=== PATIENT | female | born 1950 | race Caucasian/White ===

== ENCOUNTER 2019-06-20 07:40 | Emergency (ER) | payer MEDICARE ==
[~2019-06-20] VITALS: Ht 175.3 cm; Wt 86.4 kg
[2019-06-20] MEDS ORDERED: normal saline 1000ML IV soln IVB ONE (08:00)
[2019-06-20] MEDS ORDERED: famotidine/PF 10 mg/ml inj IV ONE (08:00)
[2019-06-20] MEDS ORDERED: ondansetron/PF 4mg/2ml inj IV ONE (08:00)
[2019-06-20 08:54] LABS: BASOPHILS % (AUTO) 0.2 % (0-1); EOSINOPHILS # (AUTO) 0.1 X10'3 (0-0.9); EOSINOPHILS % (AUTO) 0.9 % (0-6); HEMATOCRIT 38.5 % (35.0-45.0); HEMOGLOBIN 13.2 g/dl (12.0-16.0); LYMPHOCYTES # (AUTO) 1.5 X10'3 (1.1-4.8); LYMPHOCYTES % (AUTO) 13.2 % (21-51); MEAN CORPUSCULAR HEMOGLOBIN 32.7 PG (27.0-31.0); MEAN CORPUSCULAR HGB CONC 34.2 g/dL (33.0-36.5); MEAN CORPUSCULAR VOLUME 95.7 FL (78-98); MEAN PLATELET VOLUME 7.8 FL (7.4-10.4); MONOCYTES # (AUTO) 0.7 X10'3 (0-0.9); NEUTROPHILS # (AUTO) 9.1 X10'3 (1.8-7.7); NEUTROPHILS % (AUTO) 79.7 % (42-75); PLATELET COUNT 246 X10'3 (140-440); RED BLOOD COUNT 4.02 X10'6 (4.20-5.60); RED CELL DISTRIBUTION WIDTH 13.9 % (11.5-14.5); WHITE BLOOD COUNT 11.4 X10'3 (4.5-11.0)
[2019-06-20 08:59] LABS: CLARITY,URINE SLIGHTLY CLOUDY (Clear); COLOR,URINE STRAW (Yellow); GLUCOSE, URINE NEGATIVE (Neg); KETONES,URINE NEGATIVE (Neg); LEUKOCYTE ESTERASE ,URINE NEGATIVE (Neg); NITRITES, URINE NEGATIVE (Neg); OCCULT BLOOD,URINE NEGATIVE (Neg); PROTEIN,URINE NEGATIVE (Neg); UROBILINOGEN,URINE 0.2 E.U/dL (0.2-1.0)
[2019-06-20 09:02] LABS: ALANINE AMINOTRANSFERASE 24 U/L (12-78); ALBUMIN 3.5 G/DL (3.4-5.0); ALBUMIN/GLOBULIN RATIO 1.2 (1.1-1.5); ALKALINE PHOSPHATASE 54 IU/L (46-116); ASPARTATE AMINO TRANSFERASE 14 U/L (10-37); BILIRUBIN,TOTAL 0.3 MG/DL (0.1-1.0); BLOOD UREA NITROGEN 36 MG/DL (7-18); BUN/CREATININE RATIO 32.4 (6.6-38.0); CALCIUM 8.4 MG/DL (8.5-10.1); CHLORIDE 103 MMOL/L (99-107); CREATININE 1.11 MG/DL (0.40-0.90); GLUCOSE 111 MG/DL (70-104); LIPASE 98 U/L (73-393); POTASSIUM 3.8 MMOL/L (3.5-5.1); TOTAL CARBON DIOXIDE 26.2 MMOL/L (24-32); TOTAL PROTEIN 6.5 G/DL (6.4-8.2); eGFR 49 ML/MIN
[2019-06-20 09:03] LABS: ANION GAP 11 (8-16); SODIUM 140 MMOL/L (135-145)
[2019-06-20 09:22] LABS: UA COLLECTION TYPE CLN CATCH MIDSTREAM
[2019-06-20] MEDS ORDERED: ONDA4TAB6 PO (09:26)
[2019-06-20 09:27] LABS: MUCUS STRANDS NONE SEEN /LPF (Neg); SQUAMOUS EPITHELIAL CELL,UR MODERATE /LPF (FEW)
[2019-06-20 09:28] LABS: BACTERIA,URINE FEW /HPF (Neg); RBC,URINE 0-2 /HPF (0-2); TRANSITIONAL EPI CELLS,URINE FEW /HPF; WBC,URINE 0-4 /HPF (0-4)
[2019-06-20 09:29] LABS: CAL OXALATE CRYSTALS 3+ /HPF (NEGATIVE)
[2019-06-20 09:43] VITALS: BP 127/59
== END 2019-06-20 09:46 | disposition home or self-care (01) ==
LOC: ER 07:43
DX: A08.4 Viral intestinal infection, unspecified (principal); E86.0 Dehydration; I10 Essential (primary) hypertension; E11.9 Type 2 diabetes mellitus without complications; Z88.0 Allergy status to penicillin; Z79.899 Other long term (current) drug therapy
CPT/HCPCS: 36415; 71045; 80053; 81001; 83690; 84145; 85025; 87502; 87503; 93005; 96361; 96374; 96375; 99284; J2405; J3490; J7030

== ENCOUNTER 2021-01-12 00:09 | Emergency (ER) | payer MEDICARE ==
[~2021-01-12] VITALS: Ht 167.6 cm; Wt 109.0 kg
[~2021-01-12 00:09] MED LIST: ONDA4TAB6 PO
[2021-01-12 02:17] VITALS: BP 126/67
== END 2021-01-12 02:19 | disposition home or self-care (01) ==
LOC: ER 00:10
DX: M79.675 Pain in left toe(s) (principal); I10 Essential (primary) hypertension; E11.9 Type 2 diabetes mellitus without complications; Z88.0 Allergy status to penicillin; Z79.899 Other long term (current) drug therapy
CPT/HCPCS: 99281; 99283

== ENCOUNTER 2021-06-23 03:31 | Emergency (ER) | payer MEDICARE ==
[~2021-06-23] VITALS: Ht 167.6 cm; Wt 114.1 kg
[2021-06-23 05:04] LABS: CLARITY,URINE CLEAR (Clear); COLOR,URINE YELLOW (Yellow); GLUCOSE, URINE NEGATIVE (Neg); KETONES,URINE NEGATIVE (Neg); LEUKOCYTE ESTERASE ,URINE MODERATE (Neg); NITRITES, URINE NEGATIVE (Neg); OCCULT BLOOD,URINE NEGATIVE (Neg); PH,URINE 6.5 (4.8-8.0); PROTEIN,URINE NEGATIVE (Neg); UROBILINOGEN,URINE 0.2 E.U/dL (0.2-1.0)
[2021-06-23 05:05] LABS: BASOPHILS % (AUTO) 0.5 % (0-1); EOSINOPHILS # (AUTO) 0.2 X10'3 (0-0.9); EOSINOPHILS % (AUTO) 3.1 % (0-6); HEMATOCRIT 40.7 % (35.0-45.0); HEMOGLOBIN 13.8 g/dl (12.0-16.0); LYMPHOCYTES # (AUTO) 2.2 X10'3 (1.1-4.8); LYMPHOCYTES % (AUTO) 30.1 % (21-51); MEAN CORPUSCULAR HEMOGLOBIN 30.7 PG (27.0-31.0); MEAN CORPUSCULAR VOLUME 90.3 FL (78-98); MONOCYTES # (AUTO) 0.7 X10'3 (0-0.9); MONOCYTES % (AUTO) 9.6 % (2-12); NEUTROPHILS # (AUTO) 4.1 X10'3 (1.8-7.7); NEUTROPHILS % (AUTO) 56.7 % (42-75); PLATELET COUNT 203 X10'3 (140-440); RED BLOOD COUNT 4.51 X10'6 (4.20-5.60); WHITE BLOOD COUNT 7.3 X10'3 (4.5-11.0)
[2021-06-23 05:18] LABS: ALANINE AMINOTRANSFERASE 50 U/L (12-78); ALBUMIN 3.8 G/DL (3.4-5.0); ALBUMIN/GLOBULIN RATIO 1.2 (1.1-1.5); ALKALINE PHOSPHATASE 53 IU/L (46-116); ANION GAP 10 (8-16); ASPARTATE AMINO TRANSFERASE 35 U/L (10-37); BILIRUBIN,DIRECT 0.1 MG/DL (0-0.3); BILIRUBIN,TOTAL 0.3 MG/DL (0.1-1.0); BLOOD UREA NITROGEN 34 MG/DL (7-18); BUN/CREATININE RATIO 30.4 (6.6-38.0); CALCIUM 9.2 MG/DL (8.5-10.1); CHLORIDE 103 MMOL/L (99-107); CREATININE 1.12 MG/DL (0.40-0.90); ETHANOL < 0.010 GM/DL (0.0-0.010); GLUCOSE 106 MG/DL (70-104); POTASSIUM 3.8 MMOL/L (3.5-5.1); SODIUM 140 MMOL/L (135-145); TOTAL PROTEIN 7.1 G/DL (6.4-8.2); eGFR 48 ML/MIN
[2021-06-23 05:19] LABS: URINE AMPHETAMINE SCREEN NEGATIVE (Neg); URINE BARBITUATE SCREEN POSITIVE (Neg); URINE BENZODIAZEPINES SCREEN NEGATIVE (Neg); URINE CANNABINOID SCREEN NEGATIVE (Neg); URINE COCAINE SCREEN NEGATIVE (Neg); URINE METHADONE SCREEN NEGATIVE (Neg); URINE OPIATE SCREEN NEGATIVE (Neg); URINE PHENCYCLIDINE SCREEN NEGATIVE (Neg)
[2021-06-23 05:44] LABS: UA COLLECTION TYPE CLN CATCH MIDSTREAM
[2021-06-23 05:48] LABS: RBC,URINE 0-2 /HPF (0-2); WBC,URINE 30-50 /HPF (0-4)
[2021-06-23 05:49] LABS: BACTERIA,URINE FEW /HPF (Neg); MUCUS STRANDS NONE SEEN /LPF (Neg); SQUAMOUS EPITHELIAL CELL,UR FEW /LPF (FEW)
--- NOTE | 2021-06-23 06:05 | NUR ---
Call daughterRadha [phone], when patient is ready for discharge for ride home.
[2021-06-23] MEDS ORDERED: nitrofuran/nitrofuran macrocrysal 100 MG capsule PO ONE (06:10)
[2021-06-23 06:54] VITALS: BP 124/72
== END 2021-06-23 08:01 | disposition home or self-care (01) ==
LOC: ER 03:32
DX: T42.3X1A Poisoning by barbiturates, accidental (unintentional), initial encounter (principal); N39.0 Urinary tract infection, site not specified; R13.10 Dysphagia, unspecified; R20.0 Anesthesia of skin; R53.1 Weakness; I10 Essential (primary) hypertension; E11.9 Type 2 diabetes mellitus without complications; Z88.0 Allergy status to penicillin; Z79.899 Other long term (current) drug therapy; Y92.89 Other specified places as the place of occurrence of the external cause
CPT/HCPCS: 36415; 70450; 71045; 80048; 80076; 80305; 80320; 81001; 82140; 85025; 93005; 99285

== ENCOUNTER 2021-06-28 11:19 | Emergency (ER) | payer MEDICARE ==
[~2021-06-28] VITALS: Ht 167.6 cm; Wt 97.0 kg
[2021-06-28] MEDS ORDERED: LORazepam 1 MG tablet PO ONE (17:05)
[2021-06-28] MEDS ORDERED: HYDROcodone/acetaminophen 5mg/325mg tablet PO ONE (17:05)
[2021-06-28 17:37] VITALS: BP 140/74
[2021-06-28] MEDS ORDERED: PRIM50TA5 PO (17:37)
[2021-06-28] MEDS ORDERED: MONT-40 PO (17:37)
[2021-06-28] MEDS ORDERED: LEVO25TA7 PO (17:37)
[2021-06-28] MEDS ORDERED: FENO160T PO (17:37)
[2021-06-28] MEDS ORDERED: TOP100T PO (17:37)
[2021-06-28] MEDS ORDERED: OMEP-50 PO (17:37)
[2021-06-28] MEDS ORDERED: PRAV20TA4 PO (17:37)
[2021-06-28] MEDS ORDERED: LISI20TA28 PO (17:37)
[2021-06-28] MEDS ORDERED: PRAM1TAB6 PO (17:37)
[2021-06-28] MEDS ORDERED: SUMA50TA17 PO (17:37)
[2021-06-28] MEDS ORDERED: ATEN-236 PO (17:37)
[2021-06-28] MEDS ORDERED: GABA-530 PO (17:37)
[2021-06-28] MEDS ORDERED: VALA500T41 PO (17:37)
[2021-06-28] MEDS ORDERED: FLUT15.815 NAS (17:37)
[2021-06-28] MEDS ORDERED: QUET25TA36 PO (17:37)
[2021-06-28] MEDS ORDERED: PRAZ1CAP5 PO (17:37)
[2021-06-28] MEDS ORDERED: HYDR-3965 PO (17:41)
[2021-06-28] MEDS ORDERED: NAPR-56 PO (17:42)
--- NOTE | 2021-06-28 18:09 | NUR ---
pt brought dc paperwork, she then states she has a UTI that was unresolved by antibiotics. Sowmya PEREZ aware and urine collected.
[2021-06-28 18:41] LABS: CLARITY,URINE CLEAR (Clear); COLOR,URINE YELLOW (Yellow); GLUCOSE, URINE NEGATIVE (Neg); KETONES,URINE NEGATIVE (Neg); LEUKOCYTE ESTERASE ,URINE SMALL (Neg); NITRITES, URINE NEGATIVE (Neg); OCCULT BLOOD,URINE NEGATIVE (Neg); PROTEIN,URINE NEGATIVE (Neg); UROBILINOGEN,URINE 0.2 E.U/dL (0.2-1.0)
[2021-06-28 18:45] LABS: URINE AMPHETAMINE SCREEN NEGATIVE (Neg); URINE BARBITUATE SCREEN POSITIVE (Neg); URINE BENZODIAZEPINES SCREEN NEGATIVE (Neg); URINE CANNABINOID SCREEN NEGATIVE (Neg); URINE COCAINE SCREEN NEGATIVE (Neg); URINE METHADONE SCREEN NEGATIVE (Neg); URINE OPIATE SCREEN NEGATIVE (Neg); URINE PHENCYCLIDINE SCREEN NEGATIVE (Neg)
[2021-06-28 18:49] LABS: UA COLLECTION TYPE CLN CATCH MIDSTREAM
[2021-06-28 18:50] LABS: BACTERIA,URINE NONE SEEN /HPF (Neg); RBC,URINE NONE SEEN /HPF (0-2); SQUAMOUS EPITHELIAL CELL,UR FEW /LPF (FEW)
[2021-06-28] MEDS ORDERED: SULF1TAB49 PO (19:05)
--- NOTE | 2021-06-28 19:06 | NUR ---
UA is back. Pt is being discharged. Addendum: 06/28/21 at 1908 by ANN MAIRE No bacteria seen on UA
== END 2021-06-28 19:42 | disposition home or self-care (01) ==
LOC: ER 11:20
DX: M54.42 Lumbago with sciatica, left side (principal); M79.662 Pain in left lower leg; R22.43 Localized swelling, mass and lump, lower limb, bilateral; I10 Essential (primary) hypertension; E11.9 Type 2 diabetes mellitus without complications; M79.7 Fibromyalgia; Z88.0 Allergy status to penicillin; Z88.8 Allergy status to other drugs, medicaments and biological substances; Z79.899 Other long term (current) drug therapy
CPT/HCPCS: 80305; 81001; 87088; 93971; 99284

== ENCOUNTER 2021-07-10 02:41 | Inpatient (IN) | payer MEDICARE ==
[~2021-07-10] VITALS: Ht 167.6 cm; Wt 113.6 kg
[~2021-07-10 02:41] MED LIST changes: +ATEN-236 PO; +FENO160T PO; +FLUT15.815 NAS; +GABA-530 PO; +HYDR-3965 PO; +LEVO25TA7 PO; +LISI20TA28 PO; +MONT-40 PO; +NAPR-56 PO; +OMEP20CA16 PO; -ONDA4TAB6 PO; +PRAM1TAB6 PO; +PRAV20TA4 PO; +PRAZ1CAP5 PO; +PRIM50TA5 PO; +QUET25TA36 PO; +SUMA50TA17 PO; +TOP100T PO; +VALA500T41 PO
[2021-07-10 03:07] LABS: BASOPHILS % (AUTO) 0.5 % (0-1); EOSINOPHILS # (AUTO) 0.3 X10'3 (0-0.9); EOSINOPHILS % (AUTO) 4.8 % (0-6); HEMATOCRIT 40.9 % (35.0-45.0); HEMOGLOBIN 13.5 g/dl (12.0-16.0); LYMPHOCYTES # (AUTO) 2.3 X10'3 (1.1-4.8); LYMPHOCYTES % (AUTO) 34.6 % (21-51); MEAN CORPUSCULAR HEMOGLOBIN 29.9 PG (27.0-31.0); MEAN CORPUSCULAR HGB CONC 33.1 g/dL (33.0-36.5); MEAN CORPUSCULAR VOLUME 90.3 FL (78-98); MEAN PLATELET VOLUME 8.1 FL (7.4-10.4); MONOCYTES # (AUTO) 0.7 X10'3 (0-0.9); MONOCYTES % (AUTO) 10.8 % (2-12); NEUTROPHILS # (AUTO) 3.2 X10'3 (1.8-7.7); NEUTROPHILS % (AUTO) 49.3 % (42-75); PLATELET COUNT 225 X10'3 (140-440); RED BLOOD COUNT 4.53 X10'6 (4.20-5.60); WHITE BLOOD COUNT 6.6 X10'3 (4.5-11.0)
[2021-07-10 03:18] LABS: ALANINE AMINOTRANSFERASE 50 U/L (12-78); ALBUMIN 3.6 G/DL (3.4-5.0); ALBUMIN/GLOBULIN RATIO 1.1 (1.1-1.5); ALKALINE PHOSPHATASE 60 IU/L (46-116); ANION GAP 8 (8-16); ASPARTATE AMINO TRANSFERASE 24 U/L (10-37); BILIRUBIN,TOTAL 0.2 MG/DL (0.1-1.0); BLOOD UREA NITROGEN 33 MG/DL (7-18); BUN/CREATININE RATIO 28.2 (6.6-38.0); CALCIUM 8.9 MG/DL (8.5-10.1); CHLORIDE 102 MMOL/L (99-107); CREATININE 1.17 MG/DL (0.40-0.90); GLUCOSE 104 MG/DL (70-104); POTASSIUM 3.9 MMOL/L (3.5-5.1); SODIUM 137 MMOL/L (135-145); TOTAL CARBON DIOXIDE 27.5 MMOL/L (24-32); eGFR 46 ML/MIN
[2021-07-10 04:45] LABS: URINE AMPHETAMINE SCREEN NEGATIVE (Neg); URINE BARBITUATE SCREEN NEGATIVE (Neg); URINE BENZODIAZEPINES SCREEN NEGATIVE (Neg); URINE CANNABINOID SCREEN POSITIVE (Neg); URINE COCAINE SCREEN NEGATIVE (Neg); URINE METHADONE SCREEN NEGATIVE (Neg); URINE OPIATE SCREEN NEGATIVE (Neg); URINE PHENCYCLIDINE SCREEN NEGATIVE (Neg)
[2021-07-10] MEDS ORDERED: potassium Cl 20 mEq SR tablet PO PRN ×2 (05:50)
[2021-07-10] MEDS ORDERED: acetaminophen 325mg tablet PO PRN (05:50)
[2021-07-10] MEDS ORDERED: PERFLUTREN PROTEIN-A MICROSPHR (Optison) 0.22 MG/ML 3ML VIAL IV PRN (05:50)
[2021-07-10] MEDS ORDERED: ondansetron/PF 4mg/2ml inj IV PRN (05:50)
[2021-07-10] MEDS ORDERED: magnesium 2GM in 50ml NS 50 ML IV PRN (05:50)
[2021-07-10] MEDS ORDERED: magnesium 4gm in 100ml NS 100 ML IV PRN (05:50)
[2021-07-10] MEDS ORDERED: potassium CL 10mEq/100ml bag 100 ML IV PRN (05:50)
[2021-07-10] MEDS ORDERED: magnesium Cl slow-release 64mg tablet PO PRN (05:50)
[2021-07-10] MEDS: K and/or MAG REPLACEMENT MC SCH ×2 (08:00→19:29)
[2021-07-10 08:22] LABS: MAGNESIUM 1.9 MG/DL (1.5-2.4)
[2021-07-10 11:37] VITALS: BP 161/66
[2021-07-10] MEDS ORDERED: SUMAtriptan 25 MG tablet PO PRN (11:45)
[2021-07-10] MEDS: morphine 2 MG/ML inj. syringe IV PRN (13:53)
--- NOTE | 2021-07-10 14:42 | NUR ---
Notified Dr. Núñez about patient 3012C Lilian blood glucose is 247.
[2021-07-10 15:00] VITALS: BP 174/72
[2021-07-10] MEDS ORDERED: glucagon, human recombinant 1mg kit SUBCUT PRN (15:30)
[2021-07-10] MEDS ORDERED: dextrose 50%-water 50ml dispensing syringe IV PRN ×2 (15:30)
[2021-07-10] MEDS ORDERED: dextrose ORAL solution 15 GM/59 ML bottle PO PRN ×2 (15:30)
[2021-07-10] MEDS ORDERED: MESSAGE TO PHARMACY PO ONE (15:30)
[2021-07-10] MEDS: normal saline 1000ml 1,000 ML IV SCH (17:02)
[2021-07-10 18:00] VITALS: BP 140/61
--- NOTE | 2021-07-10 18:10 | NUR ---
Problems reprioritized. Patient report given, questions answered & plan of care reviewed with MAXIMO.
[2021-07-10] MEDS: topiramate 100mg tablet PO SCH (19:28)
[2021-07-10] MEDS: HYDROcodone/acetaminophen 5mg/325mg tablet PO PRN (19:28)
[2021-07-10] MEDS: montelukast 10mg tablet PO SCH (21:08)
[2021-07-10] MEDS: lisinopril 10 MG tablet PO SCH (21:08)
[2021-07-10] MEDS: primidone 50mg tablet PO SCH (21:08)
[2021-07-10] MEDS: QUEtiapine 25mg tablet PO SCH (21:09)
[2021-07-10] MEDS: pramipexole 1mg tablet PO SCH (21:09)
[2021-07-10] MEDS: gabapentin 100mg capsule PO SCH (21:09)
[2021-07-10] MEDS: prazosin 1mg capsule PO SCH (21:09)
[2021-07-10] MEDS: insulin glargine (Lantus) pen - multi-dose SQ SCH (21:28)
[2021-07-10 22:00] VITALS: BP 144/63
[2021-07-11 02:00] VITALS: BP 145/68
[2021-07-11] MEDS: HYDROcodone/acetaminophen 5mg/325mg tablet PO PRN ×3 (04:44→19:40)
[2021-07-11 06:00] VITALS: BP 160/69
[2021-07-11 06:13] LABS: BASOPHILS % (AUTO) 0.8 % (0-1); EOSINOPHILS # (AUTO) 0.2 X10'3 (0-0.9); EOSINOPHILS % (AUTO) 4.4 % (0-6); HEMOGLOBIN 13.7 g/dl (12.0-16.0); LYMPHOCYTES # (AUTO) 2.1 X10'3 (1.1-4.8); MEAN CORPUSCULAR HEMOGLOBIN 30.6 PG (27.0-31.0); MEAN CORPUSCULAR HGB CONC 34.2 g/dL (33.0-36.5); MEAN CORPUSCULAR VOLUME 89.5 FL (78-98); MEAN PLATELET VOLUME 7.9 FL (7.4-10.4); MONOCYTES # (AUTO) 0.7 X10'3 (0-0.9); MONOCYTES % (AUTO) 12.2 % (2-12); NEUTROPHILS # (AUTO) 2.4 X10'3 (1.8-7.7); NEUTROPHILS % (AUTO) 44.6 % (42-75); PLATELET COUNT 215 X10'3 (140-440); RED BLOOD COUNT 4.47 X10'6 (4.20-5.60); RED CELL DISTRIBUTION WIDTH 14.8 % (11.5-14.5); WHITE BLOOD COUNT 5.4 X10'3 (4.5-11.0)
--- NOTE | 2021-07-11 06:22 | NUR ---
Problems reprioritized. Patient report given, questions answered & plan of care reviewed with Dajuan OLSEN.
[2021-07-11 06:26] LABS: ALBUMIN 3.7 G/DL (3.4-5.0); ANION GAP 13 (8-16); BLOOD UREA NITROGEN 23 MG/DL (7-18); BUN/CREATININE RATIO 24.2 (6.6-38.0); CALCIUM 9.1 MG/DL (8.5-10.1); CHLORIDE 101 MMOL/L (99-107); CREATININE 0.95 MG/DL (0.40-0.90); GLUCOSE 201 MG/DL (70-104); POTASSIUM 4.2 MMOL/L (3.5-5.1); SODIUM 137 MMOL/L (135-145); TOTAL CARBON DIOXIDE 22.9 MMOL/L (24-32); eGFR 58 ML/MIN
[2021-07-11] MEDS: K and/or MAG REPLACEMENT MC SCH ×2 (08:00→20:00)
[2021-07-11] MEDS: levoTHYROXINE 25mcg tablet PO SCH (08:58)
[2021-07-11] MEDS: fenofibrate 145mg tablet PO SCH (08:58)
[2021-07-11] MEDS: atenolol 25mg tablet PO SCH (08:58)
[2021-07-11] MEDS: atorvastatin 20mg tablet PO SCH (08:58)
[2021-07-11] MEDS: fluticasone nasal spray 16GM bottle NS SCH (08:59)
[2021-07-11] MEDS: pantoprazole 40mg Tablet.DR PO SCH (08:59)
[2021-07-11] MEDS: topiramate 100mg tablet PO SCH ×2 (09:00→22:31)
[2021-07-11] MEDS: insulin Lispro (HumaLOG) vial - multi-dose SQ SCH ×3 (09:04→22:28)
[2021-07-11] MEDS ORDERED: LORazepam 2 mg/ml vial IV ONE (09:55)
[2021-07-11 10:00] VITALS: BP 151/76
[2021-07-11] MEDS ORDERED: HYDR-3965 PO (11:35)
--- NOTE | 2021-07-11 14:32 | NUR ---
[facility]: Pt admit dx left leg pain and chest pain per EMR. Pt reports 2-13 pounds wt loss per RN malnutrition screen. Pt has a scaled wt of 113.64 kg this admit, w/ a scaled wt hx of 109 kg in Dec 2020 per EMR. Pt PO intake 60% x 2 heart healthy meals. Pt is well-developed w/ +1 julia foot edema present per EMR and lacks minimum two malnutrition criteria at this time. Pt was seen by RD and states she takes insulin at home to manage diabetes. Pt was provided written and verbal diabetes education w/ RD contact. Will monitor for nutrition intervention needs this admit. Addendum: 07/11/21 at [address] Amended: Links added. Addendum: 07/11/21 at [address] I have reviewed assessment by internet sales director
[2021-07-11 15:00] VITALS: BP 146/78
[2021-07-11 18:00] VITALS: BP 146/70
--- NOTE | 2021-07-11 18:27 | NUR ---
Patient in room MED 316. I have received report from RAÚL Graff and had the opportunity to ask questions and assume patient care.
--- NOTE | 2021-07-11 19:54 | NUR ---
Pt stated that she did not want her IV fluids infusing.
[2021-07-11 20:00] VITALS: BP 146/70
[2021-07-11] MEDS ORDERED: enoxaparin 40mg/0.4ml syringe SUBCUT SCH (20:00)
[2021-07-11] MEDS: insulin glargine (Lantus) pen - multi-dose SQ SCH (22:30)
[2021-07-11] MEDS: prazosin 1mg capsule PO SCH (22:32)
[2021-07-11] MEDS: lisinopril 10 MG tablet PO SCH (22:33)
[2021-07-11] MEDS: montelukast 10mg tablet PO SCH (22:33)
[2021-07-11] MEDS: gabapentin 100mg capsule PO SCH (22:34)
[2021-07-11] MEDS: QUEtiapine 25mg tablet PO SCH (22:34)
[2021-07-11] MEDS: primidone 50mg tablet PO SCH (22:34)
[2021-07-11] MEDS: pramipexole 1mg tablet PO SCH (22:49)
[2021-07-11] MEDS: morphine 2 MG/ML inj. syringe IV PRN (22:49)
[2021-07-12] VITALS: BP 122/54
[2021-07-12 02:00] VITALS: BP 114/57
--- NOTE | 2021-07-12 03:00 | NUR ---
Pt had teleneuro consult pt stated that the tele wanted her to " see neuro surgeon for physical exam to check reflexes in person".
[2021-07-12] MEDS: normal saline 1000ml 1,000 ML IV SCH (05:50)
[2021-07-12 06:00] VITALS: BP 117/68
[2021-07-12 06:40] LABS: BASOPHILS % (AUTO) 0.5 % (0-1); EOSINOPHILS # (AUTO) 0.2 X10'3 (0-0.9); EOSINOPHILS % (AUTO) 3.5 % (0-6); HEMATOCRIT 40.9 % (35.0-45.0); HEMOGLOBIN 13.8 g/dl (12.0-16.0); LYMPHOCYTES # (AUTO) 2.1 X10'3 (1.1-4.8); LYMPHOCYTES % (AUTO) 34.8 % (21-51); MEAN CORPUSCULAR HEMOGLOBIN 30.1 PG (27.0-31.0); MEAN CORPUSCULAR HGB CONC 33.8 g/dL (33.0-36.5); MEAN CORPUSCULAR VOLUME 89.1 FL (78-98); MONOCYTES # (AUTO) 0.7 X10'3 (0-0.9); MONOCYTES % (AUTO) 11.2 % (2-12); PLATELET COUNT 224 X10'3 (140-440); WHITE BLOOD COUNT 5.9 X10'3 (4.5-11.0)
[2021-07-12 07:23] LABS: ALBUMIN 3.6 G/DL (3.4-5.0); ANION GAP 9 (8-16); BLOOD UREA NITROGEN 25 MG/DL (7-18); BUN/CREATININE RATIO 23.6 (6.6-38.0); CALCIUM 8.8 MG/DL (8.5-10.1); CHLORIDE 101 MMOL/L (99-107); CREATININE 1.06 MG/DL (0.40-0.90); GLUCOSE 225 MG/DL (70-104); POTASSIUM 4.2 MMOL/L (3.5-5.1); SODIUM 135 MMOL/L (135-145); TOTAL CARBON DIOXIDE 24.7 MMOL/L (24-32); eGFR 51 ML/MIN
[2021-07-12] MEDS: K and/or MAG REPLACEMENT MC SCH ×2 (08:00→10:50)
--- NOTE | 2021-07-12 08:20 | NUR ---
Problems reprioritized. Patient report given, questions answered & plan of care reviewed with RAÚL Mckeon. Addendum: 07/12/21 at 0821 by Raegan Tamayo RN Time was 0625 for report not 0820
[2021-07-12] MEDS: fluticasone nasal spray 16GM bottle NS SCH (08:30)
[2021-07-12] MEDS: levoTHYROXINE 25mcg tablet PO SCH (08:30)
[2021-07-12] MEDS: pantoprazole 40mg Tablet.DR PO SCH (08:30)
[2021-07-12] MEDS: atorvastatin 20mg tablet PO SCH (08:30)
[2021-07-12] MEDS: fenofibrate 145mg tablet PO SCH (08:30)
[2021-07-12] MEDS: atenolol 25mg tablet PO SCH (08:31)
[2021-07-12] MEDS: topiramate 100mg tablet PO SCH (08:32)
[2021-07-12] MEDS: HYDROcodone/acetaminophen 5mg/325mg tablet PO PRN (09:12)
[2021-07-12] MEDS ORDERED: bisacodyl 5mg tablet.DR PO PRN (09:15)
[2021-07-12] MEDS: insulin Lispro (HumaLOG) vial - multi-dose SQ SCH (09:34)
[2021-07-12 10:00] VITALS: BP 149/76
--- NOTE | 2021-07-12 11:20 | NUR ---
Miss Palomino is being DC to home. DC information has been reviewed. She states that she understands and has signed the DC form to confirm that. IV access has been removed. She will receive a call from the [facility] department to set up her visits. RX have been sent to her preferred RX. At the time of DC she was compliant with the plan to DC home she had no s/s of distress or discomfort. She was discharged in a WC and escorted to the front door via WC escorted by staff. She is to be picked up by an [employer] called by her daughter.
== END 2021-07-12 11:20 | disposition home health service (06) | DRG 556 ==
LOC: ER 02:41 → ED HOLD 05:51 → MED 3N 11:10
PROVIDERS: ADMIT Internal Medicine; ATTEND Internal Medicine
DX: M79.7 Fibromyalgia (principal); Z68.41 Body mass index [BMI] 40.0-44.9, adult; G99.2 Myelopathy in diseases classified elsewhere; E03.9 Hypothyroidism, unspecified; Z20.822 Contact with and (suspected) exposure to COVID-19; M48.02 Spinal stenosis, cervical region; M47.892 Other spondylosis, cervical region; E78.5 Hyperlipidemia, unspecified; F43.10 Post-traumatic stress disorder, unspecified; R07.9 Chest pain, unspecified; E11.40 Type 2 diabetes mellitus with diabetic neuropathy, unspecified; Z96.642 Presence of left artificial hip joint; E66.01 Morbid (severe) obesity due to excess calories; G25.81 Restless legs syndrome; I10 Essential (primary) hypertension; K21.9 Gastro-esophageal reflux disease without esophagitis; M54.30 Sciatica, unspecified side; Z79.899 Other long term (current) drug therapy; Z88.0 Allergy status to penicillin; Z88.8 Allergy status to other drugs, medicaments and biological substances
CPT/HCPCS: 36415; 71045; 72141; 80048; 80053; 80305; 82948; 83036; 83735; 83880; 84132; 84484; 85025; 87635; 93005; 93306; 97116; 97161; 97530; 99285; C9803; G0378; J1650; J1815; J2060; J2270; J7030

== ENCOUNTER 2021-09-17 05:35 | Emergency (ER) | payer MEDICARE ==
[~2021-09-17] VITALS: Ht 165.1 cm; Wt 113.0 kg
[~2021-09-17 05:35] MED LIST changes: -HYDR-3965 PO; -NAPR-56 PO
[2021-09-17] MEDS ORDERED: normal saline 1000ML IV soln IVB ONE (06:30)
[2021-09-17] MEDS ORDERED: HYDROcodone/acetaminophen 5mg/325mg tablet PO ONE (06:30)
[2021-09-17] MEDS ORDERED: cephalexin 250mg capsule PO ONE (06:30)
[2021-09-17] MEDS ORDERED: cephalexin 500mg capsule PO ONE (06:40)
[2021-09-17 07:02] LABS: BASOPHILS % (AUTO) 0.8 % (0-1); EOSINOPHILS % (AUTO) 0 % (0-6); HEMATOCRIT 39.6 % (35.0-45.0); HEMOGLOBIN 13.4 g/dl (12.0-16.0); LYMPHOCYTES # (AUTO) 1.8 X10'3 (1.1-4.8); LYMPHOCYTES % (AUTO) 35.7 % (21-51); MEAN CORPUSCULAR HEMOGLOBIN 29.8 PG (27.0-31.0); MEAN CORPUSCULAR HGB CONC 33.8 g/dL (33.0-36.5); MEAN CORPUSCULAR VOLUME 88.1 FL (78-98); MEAN PLATELET VOLUME 7.7 FL (7.4-10.4); MONOCYTES # (AUTO) 0.5 X10'3 (0-0.9); MONOCYTES % (AUTO) 10.8 % (2-12); NEUTROPHILS # (AUTO) 2.6 X10'3 (1.8-7.7); NEUTROPHILS % (AUTO) 52.7 % (42-75); PLATELET COUNT 206 X10'3 (140-440); RED BLOOD COUNT 4.49 X10'6 (4.20-5.60); RED CELL DISTRIBUTION WIDTH 14.6 % (11.5-14.5)
[2021-09-17 07:25] LABS: ALANINE AMINOTRANSFERASE 42 U/L (12-78); ALBUMIN 3.6 G/DL (3.4-5.0); ALBUMIN/GLOBULIN RATIO 1.1 (1.1-1.5); ALKALINE PHOSPHATASE 58 IU/L (46-116); ANION GAP 13 (8-16); ASPARTATE AMINO TRANSFERASE 22 U/L (10-37); BILIRUBIN,TOTAL 0.3 MG/DL (0.1-1.0); BLOOD UREA NITROGEN 19 MG/DL (7-18); BUN/CREATININE RATIO 17.6 (6.6-38.0); CALCIUM 8.8 MG/DL (8.5-10.1); CHLORIDE 105 MMOL/L (99-107); CREATININE 1.08 MG/DL (0.40-0.90); GLUCOSE 228 MG/DL (70-104); POTASSIUM 3.8 MMOL/L (3.5-5.1); SODIUM 141 MMOL/L (135-145); TOTAL CARBON DIOXIDE 22.9 MMOL/L (24-32); TOTAL PROTEIN 6.8 G/DL (6.4-8.2); eGFR 50 ML/MIN
[2021-09-17] MEDS ORDERED: CEPH-585 PO (07:43)
[2021-09-17] MEDS ORDERED: ketorolac tromethamine 15mg/ml inj. IV ONE (07:45)
[2021-09-17] MEDS ORDERED: ketorolac trometh. 30mg/ml inj. IV ONE (07:45)
[2021-09-17 07:58] VITALS: BP 117/60
== END 2021-09-17 08:00 | disposition home or self-care (01) ==
LOC: ER 05:36
DX: L03.032 Cellulitis of left toe (principal); E86.0 Dehydration; R53.1 Weakness; M79.675 Pain in left toe(s); R47.81 Slurred speech; I10 Essential (primary) hypertension; E11.9 Type 2 diabetes mellitus without complications; Z88.0 Allergy status to penicillin; Z88.8 Allergy status to other drugs, medicaments and biological substances; Z79.2 Long term (current) use of antibiotics; Z79.899 Other long term (current) drug therapy
CPT/HCPCS: 36415; 80053; 85025; 96361; 96374; 99284; J1885; J7030

== ENCOUNTER 2021-12-14 16:20 | Emergency (ER) | payer MEDICARE ==
[~2021-12-14] VITALS: Ht 167.6 cm; Wt 113.0 kg
[~2021-12-14 16:20] MED LIST changes: +CEPH-585 PO
[2021-12-14 16:30] VITALS: BP 149/85
[2021-12-14 19:07] LABS: COLOR,URINE YELLOW (Yellow); GLUCOSE, URINE NEGATIVE (Neg); KETONES,URINE NEGATIVE (Neg); LEUKOCYTE ESTERASE ,URINE MODERATE (Neg); NITRITES, URINE NEGATIVE (Neg); OCCULT BLOOD,URINE TRACE-INTACT (Neg); PH,URINE 5.5 (4.8-8.0); PROTEIN,URINE 100 mg/dl (Neg); UROBILINOGEN,URINE 0.2 E.U/dL (0.2-1.0)
[2021-12-14 19:15] LABS: CLARITY,URINE SLIGHTLY CLOUDY (Clear); UA COLLECTION TYPE CLN CATCH MIDSTREAM
[2021-12-14 19:16] LABS: BACTERIA,URINE FEW /HPF (Neg); RBC,URINE 0-2 /HPF (0-2); SQUAMOUS EPITHELIAL CELL,UR FEW /LPF (FEW); WBC,URINE 30-50 /HPF (0-4)
[2021-12-14] MEDS ORDERED: sulfamethoxazole/trimethoprim DS (800/160mg) tablet PO ONE (19:20)
[2021-12-14] MEDS ORDERED: HYDROcodone/acetaminophen 5mg/325mg tablet PO ONE (19:40)
[2021-12-14] MEDS ORDERED: FOSFOMYCIN TROMETHAMINE 3 GM PACKET PO ONE (19:55)
== END 2021-12-14 20:53 | disposition home or self-care (01) ==
LOC: ER 16:21
DX: N30.00 Acute cystitis without hematuria (principal); I10 Essential (primary) hypertension; E11.9 Type 2 diabetes mellitus without complications; Z88.0 Allergy status to penicillin; Z88.2 Allergy status to sulfonamides; Z88.1 Allergy status to other antibiotic agents
CPT/HCPCS: 81001; 87088; 99284

== ENCOUNTER 2021-12-30 07:27 | Emergency (ER) | payer MEDICARE ==
[~2021-12-30] VITALS: Ht 172.7 cm; Wt 120.0 kg
[2021-12-30] MEDS ORDERED: ketorolac tromethamine 15mg/ml inj. IV ONE (08:25)
[2021-12-30] MEDS ORDERED: morphine 4 MG/ML inj SYRINge IV ONE (08:25)
[2021-12-30] MEDS ORDERED: cyclobenzaprine 10mg tablet PO ONE (08:25)
[2021-12-30] MEDS ORDERED: ipratropium/albuterol 3ml nebule NEB ONE (08:25)
[2021-12-30 09:01] LABS: BASOPHILS % (AUTO) 0.6 % (0-1); EOSINOPHILS # (AUTO) 0.3 X10'3 (0-0.9); EOSINOPHILS % (AUTO) 4.8 % (0-6); HEMATOCRIT 41.8 % (35.0-45.0); HEMOGLOBIN 14.3 g/dl (12.0-16.0); LYMPHOCYTES # (AUTO) 2.3 X10'3 (1.1-4.8); MEAN CORPUSCULAR HEMOGLOBIN 30.5 PG (27.0-31.0); MEAN CORPUSCULAR HGB CONC 34.1 g/dL (33.0-36.5); MEAN CORPUSCULAR VOLUME 89.3 FL (78-98); MEAN PLATELET VOLUME 7.8 FL (7.4-10.4); MONOCYTES # (AUTO) 0.7 X10'3 (0-0.9); MONOCYTES % (AUTO) 9.8 % (2-12); NEUTROPHILS # (AUTO) 3.7 X10'3 (1.8-7.7); NEUTROPHILS % (AUTO) 51.8 % (42-75); PLATELET COUNT 195 X10'3 (140-440); RED BLOOD COUNT 4.67 X10'6 (4.20-5.60); RED CELL DISTRIBUTION WIDTH 14.8 % (11.5-14.5); WHITE BLOOD COUNT 7.1 X10'3 (4.5-11.0)
[2021-12-30 09:15] LABS: ALBUMIN 2.9 G/DL (3.4-5.0); ALBUMIN/GLOBULIN RATIO 0.8 (1.1-1.5); ALKALINE PHOSPHATASE 59 IU/L (46-116); ANION GAP 9 (8-16); ASPARTATE AMINO TRANSFERASE 18 U/L (10-37); BILIRUBIN,TOTAL 0.2 MG/DL (0.1-1.0); BLOOD UREA NITROGEN 21 MG/DL (7-18); CALCIUM 8.9 MG/DL (8.5-10.1); CHLORIDE 103 MMOL/L (99-107); CREATININE 0.75 MG/DL (0.40-0.90); GLUCOSE 103 MG/DL (70-104); POTASSIUM 3.7 MMOL/L (3.5-5.1); SODIUM 139 MMOL/L (135-145); TOTAL CARBON DIOXIDE 27.1 MMOL/L (24-32); TOTAL PROTEIN 6.4 G/DL (6.4-8.2); eGFR 76 ML/MIN
[2021-12-30 09:24] LABS: ALANINE AMINOTRANSFERASE 38 U/L (12-78)
[2021-12-30 10:52] VITALS: BP 146/77
== END 2021-12-30 10:53 | disposition home or self-care (01) ==
LOC: ER 07:27
DX: G89.29 Other chronic pain (principal); M54.9 Dorsalgia, unspecified; M25.552 Pain in left hip; M79.605 Pain in left leg; R06.02 Shortness of breath; R20.0 Anesthesia of skin; K21.9 Gastro-esophageal reflux disease without esophagitis; I12.9 Hypertensive chronic kidney disease with stage 1 through stage 4 chronic kidney disease, or unspecified chronic kidney disease; E11.22 Type 2 diabetes mellitus with diabetic chronic kidney disease; N18.9 Chronic kidney disease, unspecified; M79.7 Fibromyalgia; Z88.0 Allergy status to penicillin; Z88.2 Allergy status to sulfonamides; Z88.8 Allergy status to other drugs, medicaments and biological substances; Z79.2 Long term (current) use of antibiotics; Z79.899 Other long term (current) drug therapy
CPT/HCPCS: 36415; 71045; 80053; 83880; 84484; 85025; 93005; 94640; 96374; 96375; 99285; J1885; J2270; 94760

== ENCOUNTER 2022-02-10 17:03 | Emergency (ER) | payer MEDICARE ==
[~2022-02-10] VITALS: Ht 165.1 cm; Wt 250.0 kg
[2022-02-10 17:22] VITALS: BP 161/77
[2022-02-10] MEDS ORDERED: HYDROcodone/acetaminophen 10/325mg tab PO ONE (20:10)
[2022-02-10 20:38] LABS: BASOPHILS % (AUTO) 0.6 % (0-1); EOSINOPHILS # (AUTO) 0.3 X10'3 (0-0.9); EOSINOPHILS % (AUTO) 3.8 % (0-6); HEMATOCRIT 43.1 % (35.0-45.0); HEMOGLOBIN 14.7 g/dl (12.0-16.0); LYMPHOCYTES # (AUTO) 2.4 X10'3 (1.1-4.8); LYMPHOCYTES % (AUTO) 29.2 % (21-51); MEAN CORPUSCULAR HEMOGLOBIN 30.6 PG (27.0-31.0); MEAN CORPUSCULAR HGB CONC 34.1 g/dL (33.0-36.5); MEAN CORPUSCULAR VOLUME 89.7 FL (78-98); MEAN PLATELET VOLUME 7.7 FL (7.4-10.4); MONOCYTES # (AUTO) 0.7 X10'3 (0-0.9); MONOCYTES % (AUTO) 8.6 % (2-12); NEUTROPHILS # (AUTO) 4.7 X10'3 (1.8-7.7); NEUTROPHILS % (AUTO) 57.8 % (42-75); PLATELET COUNT 232 X10'3 (140-440); RED CELL DISTRIBUTION WIDTH 15.2 % (11.5-14.5); WHITE BLOOD COUNT 8.2 X10'3 (4.5-11.0)
[2022-02-10 20:48] LABS: ALANINE AMINOTRANSFERASE 53 U/L (12-78); ALBUMIN 3.8 G/DL (3.4-5.0); ALBUMIN/GLOBULIN RATIO 1.1 (1.1-1.5); ALKALINE PHOSPHATASE 75 IU/L (46-116); ANION GAP 11 (8-16); ASPARTATE AMINO TRANSFERASE 32 U/L (10-37); BILIRUBIN,TOTAL 0.3 MG/DL (0.1-1.0); BLOOD UREA NITROGEN 20 MG/DL (7-18); BUN/CREATININE RATIO 22.5 (6.6-38.0); CALCIUM 9.1 MG/DL (8.5-10.1); CHLORIDE 100 MMOL/L (99-107); CREATININE 0.89 MG/DL (0.40-0.90); GLUCOSE 162 MG/DL (70-104); SODIUM 135 MMOL/L (135-145); TOTAL CARBON DIOXIDE 24.3 MMOL/L (24-32); TOTAL PROTEIN 7.4 G/DL (6.4-8.2); eGFR 63 ML/MIN
== END 2022-02-10 21:28 | disposition home or self-care (01) ==
LOC: ER 17:03
DX: M54.32 Sciatica, left side (principal); K21.9 Gastro-esophageal reflux disease without esophagitis; E13.22 Other specified diabetes mellitus with diabetic chronic kidney disease; I12.9 Hypertensive chronic kidney disease with stage 1 through stage 4 chronic kidney disease, or unspecified chronic kidney disease; N18.9 Chronic kidney disease, unspecified; Z88.0 Allergy status to penicillin; Z88.2 Allergy status to sulfonamides; Z79.899 Other long term (current) drug therapy; Z79.1 Long term (current) use of non-steroidal anti-inflammatories (NSAID); Z88.1 Allergy status to other antibiotic agents; Z79.2 Long term (current) use of antibiotics
CPT/HCPCS: 80053; 82948; 85025; 85651; 99283

== ENCOUNTER 2022-03-08 12:45 | Emergency (ER) | payer MEDICARE ==
[~2022-03-08] VITALS: Ht 165.1 cm; Wt 114.1 kg
[2022-03-08 15:27] VITALS: BP 141/67
== END 2022-03-08 17:45 | disposition home or self-care (01) ==
LOC: ER 12:47
DX: R60.0 Localized edema (principal); L53.8 Other specified erythematous conditions
CPT/HCPCS: 93971; 99284

== ENCOUNTER 2022-03-29 23:09 | Emergency (ER) | payer MEDICARE ==
[~2022-03-29] VITALS: Ht 165.1 cm; Wt 109.3 kg
[2022-03-29 23:26] VITALS: BP 106/75
[2022-03-30] MEDS ORDERED: HYDROcodone/acetaminophen 10/325mg tab PO ONE (00:15)
[2022-03-30] MEDS ORDERED: HYDR-3965 PO (00:27)
== END 2022-03-30 00:37 | disposition home or self-care (01) ==
LOC: ER 23:10
DX: S82.832A Other fracture of upper and lower end of left fibula, initial encounter for closed fracture (principal); M25.552 Pain in left hip; K21.9 Gastro-esophageal reflux disease without esophagitis; N17.9 Acute kidney failure, unspecified; I12.0 Hypertensive chronic kidney disease with stage 5 chronic kidney disease or end stage renal disease; E11.22 Type 2 diabetes mellitus with diabetic chronic kidney disease; N18.9 Chronic kidney disease, unspecified; G89.29 Other chronic pain; M54.50 Low back pain, unspecified; Z88.0 Allergy status to penicillin; Z88.2 Allergy status to sulfonamides; X58.XXXA Exposure to other specified factors, initial encounter; Y93.89 Activity, other specified; Y92.89 Other specified places as the place of occurrence of the external cause; Y99.8 Other external cause status
CPT/HCPCS: 73502; 73590; 99284

== ENCOUNTER 2023-06-13 12:11 | Emergency (ER) | payer MEDICARE, MEDICAID ==
[~2023-06-13] VITALS: Ht 165.1 cm; Wt 109.1 kg
[~2023-06-13 12:11] MED LIST changes: -ATEN-236 PO; +CARV3.12 PO; -CEPH-585 PO; -VALA500T41 PO
[2023-06-13 12:25] VITALS: TEMP 98.3
[2023-06-13] MEDS ORDERED: normal saline 1000ml 1,000 ML IV ONE ×2 (13:05)
[2023-06-13 13:44] LABS: BILIRUBIN,URINE NEGATIVE (Neg); CLARITY,URINE CLEAR (Clear); COLOR,URINE YELLOW (Yellow); GLUCOSE, URINE NEGATIVE (Neg); KETONES,URINE NEGATIVE (Neg); LEUKOCYTE ESTERASE ,URINE NEGATIVE (Neg); NITRITES, URINE NEGATIVE (Neg); OCCULT BLOOD,URINE NEGATIVE (Neg); PH,URINE 6.5 (4.8-8.0); PROTEIN,URINE 100 mg/dl (Neg); UROBILINOGEN,URINE 0.2 E.U/dL (0.2-1.0)
[2023-06-13 13:45] LABS: UA COLLECTION TYPE VOIDED
[2023-06-13 13:50] LABS: BACTERIA,URINE FEW /HPF (Neg); FINE GRANULAR CAST 0-3 /LPF (NEGATIVE); MUCUS STRANDS NONE SEEN /LPF (Neg); RBC,URINE NONE SEEN /HPF (0-2); SQUAMOUS EPITHELIAL CELL,UR FEW /LPF (FEW)
[2023-06-13 14:23] LABS: BASOPHILS % (AUTO) 0.7 % (0-1); EOSINOPHILS # (AUTO) 0.2 X10'3 (0-0.9); EOSINOPHILS % (AUTO) 2.9 % (0-6); HEMATOCRIT 35.7 % (35.0-45.0); HEMOGLOBIN 12.4 g/dl (12.0-16.0); LYMPHOCYTES % (AUTO) 32.3 % (21-51); MEAN CORPUSCULAR HEMOGLOBIN 31.6 PG (27.0-31.0); MEAN CORPUSCULAR HGB CONC 34.8 g/dL (33.0-36.5); MEAN CORPUSCULAR VOLUME 90.8 FL (78-98); MEAN PLATELET VOLUME 7.6 FL (7.4-10.4); MONOCYTES # (AUTO) 0.6 X10'3 (0-0.9); MONOCYTES % (AUTO) 9.7 % (2-12); NEUTROPHILS # (AUTO) 3.3 X10'3 (1.8-7.7); NEUTROPHILS % (AUTO) 54.4 % (42-75); PLATELET COUNT 179 X10'3 (140-440); RED BLOOD COUNT 3.94 X10'6 (4.20-5.60); RED CELL DISTRIBUTION WIDTH 13.8 % (11.5-14.5); WHITE BLOOD COUNT 6.1 X10'3 (4.5-11.0)
[2023-06-13 14:36] LABS: ALANINE AMINOTRANSFERASE 17 U/L (12-78); ALBUMIN/GLOBULIN RATIO 0.8 (1.1-1.5); ALKALINE PHOSPHATASE 39 IU/L (46-116); ANION GAP 8 (8-16); ASPARTATE AMINO TRANSFERASE 26 U/L (10-37); BILIRUBIN,TOTAL 0.3 MG/DL (0.1-1.0); BLOOD UREA NITROGEN 13 MG/DL (7-18); BUN/CREATININE RATIO 20.3 (10.0-20.0); CALCIUM 6.5 MG/DL (8.5-10.1); CHLORIDE 109 MMOL/L (99-107); CREATININE 0.64 MG/DL (0.40-0.90); GLUCOSE 123 MG/DL (70-104); SODIUM 141 MMOL/L (135-145); TOTAL CARBON DIOXIDE 24.5 MMOL/L (24-32); TOTAL PROTEIN 4.6 G/DL (6.4-8.2); eCRCL 72 ML/MIN; eGFR > 90 ML/MIN
[2023-06-13 14:43] LABS: POTASSIUM 2.8 MMOL/L (3.5-5.1)
[2023-06-13] MEDS ORDERED: potassium Cl 20 mEq SR tablet PO STA (14:46)
[2023-06-13] MEDS ORDERED: CEPH-585 PO (14:49)
[2023-06-13 16:41] VITALS: BP 192/91; PULSE 85; RESP 16; O2SAT 95
== END 2023-06-13 16:55 | disposition home or self-care (01) ==
LOC: ER 12:12
DX: E11.65 Type 2 diabetes mellitus with hyperglycemia (principal); N39.0 Urinary tract infection, site not specified; E11.22 Type 2 diabetes mellitus with diabetic chronic kidney disease; I12.9 Hypertensive chronic kidney disease with stage 1 through stage 4 chronic kidney disease, or unspecified chronic kidney disease; N18.9 Chronic kidney disease, unspecified; K21.9 Gastro-esophageal reflux disease without esophagitis
CPT/HCPCS: 36415; 80053; 81001; 85025; 87088; 93005; 96360; 96361; 99284; J7030

== ENCOUNTER 2024-10-24 09:07 | Emergency (ER) | payer MEDICARE, MEDICAID ==
[~2024-10-24] VITALS: Ht 165.1 cm; Wt 110.0 kg
[2024-10-24 09:17] VITALS: TEMP 96.8
--- NOTE | 2024-10-24 11:39 | Physician Documentation ---
HPI ~ General Chief Complaint: Tooth Problem Stated Complaint: FACIAL PAIN Time Seen by MD: 09:18 Primary Medical Doctor: ALONSO Jackman History of Present Illness HPI Comment Patient is seen today with complaints of pain of her tongue from rubbing on one of her jagged broken molars on the right lower jaw. Patient denies any fevers or chills or jaw pain. She states she does have an appointment with the dentist coming up in a couple of weeks. She has no other concern or complaint at this time. Medication Reconciliation Allergies: Coded Allergies: Penicillins (Verified Allergy, Unknown, rash, 06/28/21) Sulfa (Sulfonamide Antibiotics) (Unverified Allergy, Unknown, 10/24/24) ciprofloxacin (Unverified Allergy, Unknown, 10/24/24) clindamycin (Unverified Allergy, Unknown, 10/24/24) diphenhydramine (Verified Allergy, Unknown, restless leg, 10/24/24) midazolam (Verified Adverse Reaction, Mild, restless leg, 10/24/24) Scheduled Carvedilol (Coreg), 1 TAB PO Q12H Fenofibrate (Fenofibrate), 1 TAB PO DAILY, (Reported) Gabapentin (Gabapentin), 2 CAP PO HS, (Reported) Levothyroxine Sodium (Levothyroxine Sodium), 1 TAB PO DAILY, (Reported) Lisinopril (Lisinopril), 1 TAB PO HS Montelukast Sodium (Montelukast Sodium), 1 TAB PO HS, (Reported) Omeprazole (Omeprazole), 2 CAP PO DAILY, (Reported) Pramipexole Di-Hcl (Pramipexole Dihydrochloride), 2 TAB PO HS, (Reported) Pravastatin Sodium (Pravastatin Sodium), 3 TAB PO HS, (Reported) Prazosin Hcl (Prazosin Hcl), 3 CAP PO HS, (Reported) Primidone (Mysoline), 2 TAB PO HS, (Reported) Quetiapine Fumarate (Quetiapine Fumarate), 2 TAB PO HS, (Reported) Sumatriptan Succinate (Sumatriptan Succinate), 1 TAB PO PRN, (Reported) Topiramate (Topamax), 1 TAB PO BID, (Reported) Scheduled PRN Fluticasone Propionate (Aller-Manuel), 2 SPR WILL DAILY PRN for allergies, (Reported) Past Medical History Past Medical History: Hypertension, GERD, Acute Kidney Injury, Chronic Kidney Disease, Diabetes, Chronic Back Pain, Fibromyalgia Past Surgical History: noncontributory Patient History: FH: arthritis FH: diabetes mellitus FH: kidney disease FH: mental illness FH: stroke Alcohol Use: None Drug Use: none Lives with: Spouse Lives In: Home Review of Systems Constitutional: Denies: chills, fever, weakness Eyes: Denies: pain, blurred vision ENT: Denies: ear pain, nose pain, throat pain, mouth pain Respiratory: Denies: cough, shortness of breath Cardiovascular: Denies: chest pain, palpitations Gastrointestinal: Denies: abdominal pain, nausea, vomiting Genitourinary: Denies: burning, dysuria Female Genitalia: Denies: vaginal discharge, pelvic pain Neurological: Denies: headache, dizziness Musculoskeletal: Denies: pain, swelling Integumentary: Denies: rash, lesions Allergic/Immunologic: Denies: hives, itching Hematologic/Lymphatic: Denies: no symptoms reported Psychiatric: Denies: depression, anxiety Physical Exam Vital Signs: Temperature: 96.8, Source: Temporal, Heart Rate: 71, Respiratory Rate: 18, BP: 156/77, Pulse Oximetry: 98, Weight: 110.000 Physical Exam General: Awake and Alert, no acute distress. HEENT: Patient on exam has extremely poor dentition with terrible caries and broken teeth and missing teeth. The molar and question of the right lower jaw is very jagged in the appears to be irritating the patient's tongue slightly. I do Not appreciate any periapical abscess or swelling of the gums or jaw. Conjunctiva pink, Sclera clear, Mucus Membranes moist. Neck: Supple without masses and tenderness. Resp: Unlabored. Lungs clear to auscultation bilaterally. Heart: Regular Rate and rhythm, normal S1 and S2 without murmur, rub or gallop. Abdomen: Soft and non tender no organomegaly Extremities: No cyanosis,clubbing or edema. Skin: Warm and Dry. Progress Results/Orders Results/Orders Vital Signs 10/24/24 09:17 Temp 96.8 Pulse 71 Resp 18 B/P (MAP) 156/77 Pulse Ox 98 Medical Decision Making Findings Patient is seen today with complaints of pain of her tongue from rubbing on one of her jagged broken molars on the right lower jaw. Patient denies any fevers or chills or jaw pain. She states she does have an appointment with the dentist coming up in a couple of weeks. She has no other concern or complaint at this time. Patient was given injection of Toradol 15 mg IM as well as Tylenol 650 mg by mouth in the ED today. Patient has multiple allergies listed however patient states she is currently taking Bactrim right now without any allergic reaction and she also denies any previous allergic reaction to clindamycin. Patient does admit to having a rash after taking amoxicillin few years ago. Prescription of Tylenol and ibuprofen to be taken as directed sent to patient's pharmacy. Patient will keep appointment coming up with her dentist in a couple of weeks. Departure Disposition: HOME / SELF CARE / HOMELESS Impression: Primary Impression: Toothache Condition: Improved Discharge Instructions: Dental Pain Additional Instructions: Patient was given injection of Toradol 15 mg IM as well as Tylenol 650 mg by mouth in the ED today. Patient has multiple allergies listed however patient states she is currently taking Bactrim right now without any allergic reaction and she also denies any previous allergic reaction to clindamycin. Patient does admit to having a rash after taking amoxicillin few years ago. Prescription of Tylenol and ibuprofen to be taken as directed sent to patient's pharmacy. Patient will keep appointment coming up with her dentist in a couple of weeks. Referrals: NO PRIMARY CARE PROVIDER (PCP) Prescriptions Acetaminophen (Tylenol Extra Strength) 500 Mg Tablet 2 TAB PO Q6H PRN PRN for pain or fever for 7 Days, #56 TAB Prov: CAITY CARTER 10/24/24 Ibuprofen (Ibuprofen) 600 Mg Tablet 1 TAB PO Q8H for pain for 10 Days, #30 TAB 0 Refills with food Prov: CAITY CARTER 10/24/24 Signature Scribe Signature: No scribe Attestation: No scribe CAITY CARTER October 24, 2024 11:39
[2024-10-24 11:43] VITALS: BP 178/84; PULSE 73; RESP 16; O2SAT 100
[2024-10-24] MEDS ORDERED: IBUP-1985 PO (11:45)
[2024-10-24] MEDS ORDERED: ACET-1025 PO (11:45)
[2024-10-24] MEDS: acetaminophen 325mg tablet PO STA (11:48)
[2024-10-24] MEDS: ketorolac trometh 15mg/ml vial 15 MG/ML ML IM STA (11:48)
== END 2024-10-24 12:03 | disposition home or self-care (01) ==
LOC: ER 09:08
DX: K08.89 Other specified disorders of teeth and supporting structures (principal); E11.22 Type 2 diabetes mellitus with diabetic chronic kidney disease; I12.9 Hypertensive chronic kidney disease with stage 1 through stage 4 chronic kidney disease, or unspecified chronic kidney disease; N18.9 Chronic kidney disease, unspecified; M79.7 Fibromyalgia; Z88.0 Allergy status to penicillin; Z88.1 Allergy status to other antibiotic agents; Z88.2 Allergy status to sulfonamides; Z88.8 Allergy status to other drugs, medicaments and biological substances
CPT/HCPCS: 96372; 99283; J1885